=== PATIENT | male | born 1955 | race Caucasian/White ===

== ENCOUNTER → 2025-06-06 09:44 | Outpatient (REF) | payer OTHER, SELFPAY | LOC: HWRAD 09:44 | PROVIDERS: ATTENDING PHYSICIAN Family Medicine | DX: Z85.51 Personal history of malignant neoplasm of bladder (principal); Z87.438 Personal history of other diseases of male genital organs; N18.31 Chronic kidney disease, stage 3a; R80.9 Proteinuria, unspecified | CPT/HCPCS: 76775 ==